=== PATIENT | female | born 1955 | race Caucasian/White ===

== ENCOUNTER 2017-02-28 07:50 | Day surgery (SDC) | payer OTHER ==
[~2017-02-28] VITALS: Ht 165.1 cm; Wt 75.4 kg
[~2017-02-28 07:50] MED LIST: GLUCOPHAGE500 MG PO; LEVOXYL125 MCG PO; WOMEN'S 50 PLU1 EACH PO; ZOLOFT50 MG PO
[2017-02-28 08:24] VITALS: BP 143/83
[2017-02-28 11:45] VITALS: BP 140/81
[2017-02-28 12:25] VITALS: BP 137/81
== END 2017-02-28 12:40 | disposition home or self-care (01) ==
LOC: SDC 07:50
PROVIDERS: Ophthalmology
PROC: 08B53ZZ Excision of Left Vitreous, Percutaneous Approach (ICD-10-PCS; principal; 2017-02-28)
PROC: 3E0C329 Introduction of Other Anti-infective into Eye, Percutaneous Approach (ICD-10-PCS; 2017-02-28)
DX: H43.392 Other vitreous opacities, left eye (principal); H43.812 Vitreous degeneration, left eye; H43.12 Vitreous hemorrhage, left eye; E11.9 Type 2 diabetes mellitus without complications; E03.9 Hypothyroidism, unspecified; Z79.84 Long term (current) use of oral hypoglycemic drugs; F17.200 Nicotine dependence, unspecified, uncomplicated
CPT/HCPCS: 82948; J0690; J0713; J2250; J2405; J3010

== ENCOUNTER 2017-08-22 06:40 | Day surgery (SDC) | payer OTHER ==
[~2017-08-22] VITALS: Ht 165.1 cm; Wt 74.8 kg
[~2017-08-22 06:40] MED LIST changes: +LIPITOR10 MG PO; +[UNRECOGNIZED DRUG - REMARK] PO
[2017-08-22 07:59] VITALS: BP 121/62
[2017-08-22 09:50] VITALS: BP 138/64
[2017-08-22 10:25] VITALS: BP 154/72
== END 2017-08-22 10:25 | disposition home or self-care (01) ==
LOC: SDC 06:40
PROVIDERS: Ophthalmology
DX: H43.391 Other vitreous opacities, right eye (principal); H43.811 Vitreous degeneration, right eye; H33.311 Horseshoe tear of retina without detachment, right eye; E03.9 Hypothyroidism, unspecified; E11.9 Type 2 diabetes mellitus without complications; E78.2 Mixed hyperlipidemia; F41.1 Generalized anxiety disorder; F17.210 Nicotine dependence, cigarettes, uncomplicated
CPT/HCPCS: 82948; J0330; J0690; J0713; J2250; J3010